=== PATIENT | female | born 1995 | race African-American/Black ===

== ENCOUNTER 2021-07-10 18:19 | Emergency (ER) | payer OTHER ==
[2021-07-10] MEDS ORDERED: Tetracaine 0.5% PF 4 ML BOT ONE (18:51)
[2021-07-10] MEDS ORDERED: Fluorescein Opthalmic Strip ONE (18:51)
[2021-07-10] MEDS ORDERED: Tobramycin Sulfate 0.3% Ophth Susp 5 ml Bottle ONE (19:02)
== END 2021-07-10 19:15 | disposition home or self-care (01) ==
LOC: BURERS 18:19
DX: T15.01XA Foreign body in cornea, right eye, initial encounter (principal); E10.9 Type 1 diabetes mellitus without complications; E03.9 Hypothyroidism, unspecified; J45.909 Unspecified asthma, uncomplicated; X58.XXXA Exposure to other specified factors, initial encounter
CPT/HCPCS: 99283; J1956

== ENCOUNTER 2021-12-26 14:45 | Emergency (ER) | payer OTHER | END 2021-12-26 15:15 | disposition home or self-care (01) | LOC: BURERS 14:45 | DX: H66.92 Otitis media, unspecified, left ear (principal); H60.92 Unspecified otitis externa, left ear; E03.9 Hypothyroidism, unspecified; E10.9 Type 1 diabetes mellitus without complications; Z79.4 Long term (current) use of insulin | CPT/HCPCS: 99283 ==

== ENCOUNTER 2022-02-19 18:21 | Emergency (ER) | payer OTHER ==
[2022-02-19 19:54] LABS: Bilirubin Negative (Negative); Blood, Urine Trace (Negative); Clarity Clear (Clear); Glucose, Urine (Dipstick) 500 mg/dL (Negative); Ketone, Urine Negative (Negative); Leukocyte Negative (Negative); Nitrite Negative (Negative); Protein, Urine (Dipstick) Negative (Neg-Trace); Specific Gravity, Urine 1.015 (1.005-1.030); Urobilinogen 0.2 mg/dL (Less than 2)
[2022-02-19 20:02] LABS: Bacteria/HPF Rare-Few HPF (None Seen); RBC/HPF 0-3 HPF (0-3); Squamous Epithelial 0-3 HPF (0-3); WBC/HPF 0-3 HPF (0-3)
[2022-02-19 20:03] LABS: Pregnancy Test - Urine (BHCG) Negative (Negative); Pregu Control Background? CLEAR/WHITE (CLR/WHITE); Pregu Control Bar Appear? YES (CONTROL BAR); Specific Gravity 1.015 (1.002-1.036)
[2022-02-19 21:41] LABS: #Basophils 0.1 thou/uL (0.0-0.2); #Eosinphils 0.3 thou/uL (0.0-0.7); #Monocytes 0.6 thou/uL (0.11-0.59); #Neutrophils 2.9 thou/uL (1.40-6.50); %Basophils 1.6 % (0.0-1.0); %Eosinophils 4.7 % (0.0-10.0); %Lymphocytes 43.8 % (21.0-51.0); %Monocytes 8.1 % (0.0-10.0); %Neutrophils 41.9 % (42.0-75.0); Hemoglobin 13.8 g/dL (12.0-16.0); Mean Corpuscular Hemoglobin 26.8 pg (27.0-31.0); Mean Corpuscular Volume 81.3 fL (78.0-98.0); Platelet Count 303 thou/uL (130-400); RBC Distribution Width 12.2 % (11.5-14.5); Red Blood Cell (RBC) Count 5.16 mill/uL (4.20-5.40); White Blood Cell (WBC) Count 6.9 thou/uL (4.8-10.8)
[2022-02-19 21:48] LABS: Base Excess-Venous -0.9 mmol/L (-2.0 to 3.0); Bicarbonate (HCO3v) 24.7 mmol/L (22.0-28.0); CO2 Tension (PvCO2) 43.3 mmHg (42.0-51.0); Calcium, Ionized 1.16 mmol/L (1.15-1.33); Chloride 103 mmol/L (98-107); Hemoglobin - Calc 14.9 g/dL (12.0-16.0); Potassium 4.1 mmol/L (3.5-5.1); Sodium 137 mmol/L (138-145); vO2 Saturation-calc 72.1 % (60.0-85.0)
[2022-02-19 21:51] LABS: ALT (SGPT) 29 U/L (8-55); AST (SGOT) 24 U/L (5-34); Albumin 4.3 g/dL (3.5-5.0); Alkaline Phosphatase 82 U/L (40-110); Anion Gap 14 mmol/L (10-20); BUN (Urea Nitrogen) 8 mg/dL (7.0-18.7); Bilirubin, Total 0.3 mg/dL (0.2-1.2); Calc. Creatinine Clearance 0 mL/min (70-130); Calcium 9.6 mg/dL (7.8-10.44); Carbon Dioxide 25 mmol/L (22-29); Chloride 101 mmol/L (98-107); Estimated GFR 112; Globulin 3.4 g/dL (2.4-3.5); Glucose 355 mg/dL (70-105); Potassium 4.3 mmol/L (3.5-5.1); Protein, Total 7.7 g/dL (6.0-8.3); Sodium 136 mmol/L (136-145)
[2022-02-19] MEDS ORDERED: Fluconazole 100 MG TAB ONE (22:08)
[2022-02-20 11:21] LABS: Chlam.trachomatis by PCR,Urine Not Detected (NotDetected)
== END 2022-02-19 21:13 | disposition home or self-care (01) ==
LOC: BURERS 18:21
DX: B37.31 Acute candidiasis of vulva and vagina (principal); E10.65 Type 1 diabetes mellitus with hyperglycemia
CPT/HCPCS: 36416; 80053; 81003; 81015; 81025; 82330; 82435; 82803; 84132; 84295; 85014; 85025; 87491; 87591; 99283; 36415-59